=== PATIENT | female | born 1985 | race Caucasian/White ===

== ENCOUNTER 2021-11-15 16:31 | Outpatient (CLI) | payer OTHER, SELFPAY ==
--- NOTE | 2021-11-15 14:40 | EMB_PTH ---
PATIENT: NISHANT PERKINS LOC: [facility] U#:[id number] AGE/SX: 36/F ROOM: RE11/15/[address]: Dr. Hansel Knutson MD : 1985 BED: DIS: 11/15/2021 SPEC #: [id number] RECD: 11/15/21 17:02 STATUS: KARL MASOUD #: [id number] ABDI: 11/15/21 14:[address]: Hansel Knutson DEPT: SURGICAL PATHOLOGY RECD BY: Ashely Griffith ENTERED: 11/16/21 11:52 SP TYPE: ENDOM BX/C ANAND DR: Dr. Jim Gary MD Tissues: Endometrium, NOS Procedures: Surgery Specimen Level IV HEADER OPERATION: Endometrial biopsy PRE-OP DIAGNOSIS: N92.0 TISSUE SUBMITTED: Endometrial biopsy MICROSCOPIC DIAGNOSIS Endometrial biopsy: Secretory endometrium. SJ:elsy 11/17/2021 MICROSCOPIC DESCRIPTION Slides are reviewed. GROSS DESCRIPTION Received in fixative is one container labeled with the patient's name and designated endometrial biopsy. The specimen consists of multiple irregular and elongated fragments of light to dark walker soft tissue that in aggregate measure 2 x 2 x 0.2 cm. The specimen is totally submitted in one cassette. / AM:elsy 11/16/2021 TC:4 CPT: 83470
[2021-11-21 13:42] LABS: HPV Reflexed? NOT INDICATED
== END 2021-11-15 23:59 | disposition home or self-care (01) ==
LOC: LABSPEC 16:33
PROVIDERS: PCP Family Medicine; Visit Provider Obstetrics & Gynecology
DX: N92.0 Excessive and frequent menstruation with regular cycle (principal); Z12.4 Encounter for screening for malignant neoplasm of cervix
CPT/HCPCS: 88175; 88305; G0145

== ENCOUNTER 2022-01-16 06:44 | Day surgery (SDC) | payer SELFPAY, OTHER ==
[2022-01-05 13:21] LABS: Hematocrit 38.2 % (37-47); Hemoglobin 12.6 g/dL (12.0-15.0); Mean Corpuscular Hgb 27.8 pg (27.0-32.0); Mean Corpuscular Volume 84.3 fL (81-99); Mean Platelet Vol. 10.2 fl (6.2-12.0); Platelet Count 385 K/mm3 (150-450); RBC Distribution Width CV 12.9 % (11.6-14.6); RBC Distribution Width SD 39.4 fl (35.1-43.9); Red Blood Count 4.53 M/mm3 (4.2-5.4); White Blood Count 9.9 K/mm3 (4.4-11.0)
[2022-01-05 13:33] LABS: International Normalized Ratio 1.1; Partial Thromboplast Time 30.5 Seconds (24.1-36.2); Prothrombin Time (Protime)PT. 13.2 SECONDS (11.7-14.9)
--- NOTE | 2022-01-15 12:25 | HP.PCM_ITS ---
History and Physical Date of Admission: 01/16/22 Surgical History and Physical Janny Ma, a 36 year old female 4 0 0 0 4, presents for Dx H/S, D and C, HTA on January 16, 2022 at . -- Menorrhagia -- Heavy menses, Painful menses which began 08/2018. Janny claims it started after csection in 08/2018 It is located in the uterus. Severity is moderate to severe; It is aggravated by menses. It is relieved by none. Prior tubal. MEDICATIONS HISTORY: None ALLERGIES: Sulfa (Sulfonamide Antibiotics), Hives and/or rash, Betadine, Hives and/or rash, Bactrim and Hives and/or rash Infections - Chicken pox Illnesses - no serious past illnesses Accidents - None Hospitalizations - see surgery Review of Systems: GENERAL - Denies fever, or chills SKIN - Denies skin changes EYES - Denies visual changes EARS - Denies difficulty hearing NOSE - Denies nasal congestion or bleeding MOUTH - Denies sore throat or difficulty swallowing NECK - Denies pain or swelling RESPIRATORY - Denies shortness of breath or wheezing CARDIOVASCULAR - Denies palpitations or chest pain GASTROINTESTINAL - Denies nausea, vomiting, diarrhea, constipation GENITOURINARY - Denies dysuria, frequency of urination, incontinence of urine MUSCULOSKELETAL - Denies joint or muscle pain NEUROLOGICAL - Denies localized numbness or weakness PSYCHIATRIC - Denies depression or anxiety ENDOCRINE - Denies heat or cold intolerance, weight loss or gain HEMATO-IMMUNOLOGIC - Denies excesive bleeding with cuts SOCIAL HISTORY: Alcohol Use - None Smoking - Never Diet - no special diet Lifestyle - moderate stress lifestyle and Exercise - active work Seat Belt Use - most of the time Employer - [employer] Illicit Drug Use - None Sexual Activity - Spouse-Sig Other Name - Jeff Spouse-Sig Other Occupation - Self-Employed Children Name(s) - Ana Luisa(11), Rom(13), Konstantin(16), Larry(18) Control - Prior Tubal FAMILY HISTORY: MENSTRUAL HISTORY: LMP Known?- C-SectionAmount/Duration - 5 days, Regularity - Regular, Frequency - monthly days, LMP - 12/23/21, Age Onset Menarche - 14 PAST PREGNANCIES: Total Pregnancies - 4; Full Term Pregnancies - 4; Premature - 0; Abortions, Induced - 0; Abortions, Spontaneous - 0; Ectopics - 0; Multiple Births - 0; Living Children - 4 SURGICAL HISTORY: 1. 08/28/2018 and Tubal ; Hansel Knutson M.D. 2. 09/27/2016 ; Dr. Rubio PHYSICAL EXAM BP- 120/82 Sitting, Left arm, regular cuff Temp- 98.3 Taken Orally Weight- 227.93763 lbs Height- 68 inch BMI:34.6 CONSTITUTIONAL - NAD, well nourished, and well developed SKIN - No rash, lesions, or ulcers HEENT - Normocephalic, PERRLA, EOMI NECK - No nodes, no nuchal rigidity and thyroid normal size and texture LYMPH NODES - Palpation of lymph nodes in neck and groins within normal limits LUNGS - CTA x2 without wheezes, crackles or rales CARDIAC - Regular rate and rhythm without rubs, murmurs, or gallops ABDOMEN - Without hepatosplenomegaly, distention, masses, rebound, or guarding; normal bowel sounds; no hernias EXTREMITIES - No edema or calf tenderness NEUROLOGICAL - Cranial nerves II-XII grossly intact PSYCHIATRIC - A and O to time, place, person, mood and affect External Genitial Vagina - non-tender without lesions Urethra/Urethral Meatus - non-tender Bladder - non-tender Vagina - vaginal chávez are pink and moist without loss of rugae and no evidence of atropy Cervix - without cervical motion tenderness and has normal size and features without evident lesions Uterus - enlarged uterus 8 wks, wt 125-150 g Adnexa - clear without massess or tenderness ASSESSMENT/PLAN: 1. Premenopausal Menorrhagia EMBx OK and U/S shows no fibroids. Discussed options and pt wants to proceed with Dx H/S and D and C and HTA. Discussed RBAs and all questions answered.
[2022-01-16] VITALS (7 sets, daily range): BP systolic 115–134; BP diastolic 76–90; PULSE 49–79; RESP 16–18; TEMP 36.1–37.2; O2SAT 94–99; BMI 38.1
[2022-01-16] MEDS: Lactated Ringers 1,000 ML 15 ML IV (07:45)
--- NOTE | 2022-01-16 08:20 | EMB_PTH ---
PATIENT: NISHANT PERKINS [place] [facility] [place] U[place][id number] AGE/SX: 36/F ROOM: RE01/16/[address]: Dr. Hansel Knutson MD : 1985 BED: DIS: 01/16/2022 SPEC #: [id number] RECD: 01/16/22 10:47 STATUS: KARL MASOUD #: [id number] ABDI: 01/16/22 08:[address]: Hansel Knutson DEPT: SURGICAL PATHOLOGY RECD BY: Luana Rodriguez ENTERED: 01/16/22 11:38 SP TYPE: ENDOM BX/C ANAND DR: Katie Valle, SARIKA Tissues: Endometrium, NOS Procedures: Surgery Specimen Level IV HEADER OPERATION: Hysteroscopy, dilation and curettage, hydrothermal ablation PRE-OP DIAGNOSIS: Menorrhagia TISSUE SUBMITTED: Endometrial curettings MICROSCOPIC DIAGNOSIS Endometrium, biopsy: Secretory endometrium. AM:elsy 01/17/2022 COMMENT Reference is made to the patient's previous endometrial biopsy from 11/17/2021 ([id number]) in which secretory endometrium was identified. Case has been reviewed in consultation with Dr. Olvera who concurs with the above diagnosis. IDC:[email or web address] MICROSCOPIC DESCRIPTION Slides are reviewed. GROSS DESCRIPTION Received in fixative is one container labeled with the patient's name and designated endometrial curettings. The specimen consists of multiple irregular fragments of walker-pink soft tissue mixed with polypoid tissue that in aggregate measure 7.5 x 3 x 0.6 cm. The entire specimen is submitted in six cassettes. / CYNTHIA:elsy 01/16/2022 TC:5 CPT: 89435
[2022-01-16] MEDS: Cefotetan 2 GM in 0.9% NS 100 ML IV (08:28)
--- NOTE | 2022-01-16 09:14 | OP.PCM_ITS ---
Report of Operation Date of Procedure: 01/16/22 Pre-Operative Diagnosis: Menorrhagia Post-Operative Diagnosis: Menorrhagia Surgery/Procedure Performed:: Diagnostic Hysteroscopy, Dilation and Curettage, Hydrothermal Ablation Description of Surgical Findings:: 10 cm endometrial cavity with no fibroids visualized. George endometrium. Surgeon: Hansel Knutson Type of Anesthesia: General (LMA) Anesthesiologist: Herman Thornton Specimen's removed: Endometrial curettings Estimated Blood Loss (mL): Minimal Fluids Replaced: Crystalloid Description of Procedure: Surgeon: Hansel Knutson MD, FACOG Indication: This is a 36year old patient who has been having problems with extremely heavy menses. Conservative measures have not been helpful. Endometrial sampling was benign and pelvic ultrasound showed that ablation may be helpful. Pt has been counseled regarding the risks, benefits and alternatives of this procedure and all questions answered. She understands that only about half of patients will have amenorrhea after this procedure. Procedure: Patient taken to the operating room where after induction of general anesthesia the patient was prepped and draped in the usual sterile fashion. Bladder was drained of urine with a catheter. Anterior cervix grasped and cervix was dilated to about 17 Hungarian size. Hysteroscopic hydrothermal ablation (HTA) unit was place in the cervix and the above findings were noted. HTA unit was removed and the uterus was gently curretted removing all contents. An HTA ablation cycle was then carried out at about 90 degrees Centigrade for 10 minutes with virtually no fluid loss during the procedure. After an appropriate cool down the HTA unit was removed with minimal bleeding noted. The patient tolerated the procedure well and was taken to the recovery room in satisfactory condition. Sponge, instruments and needle counts were all correct. There were no apparent complications of the surgery. Cefotetan 2 gms IV was given prior to the procedure. Estimated Blood Loss: Minimal Specimen to Pathology: Endometrial Curettings Grafts/Implants Used: None Complications None Admit VTE Documentation VTE Present on Admission: Yes VTE Mechan Device Prophylaxis: SCD's
--- NOTE | 2022-01-16 09:18 | DCINST_ITS ---
Discharge Instructions Diet Discharge Diet: No restrictions Activity Discharge Activity: Return to Normal Activity, May Shower and May Take a Tub Bath May resume sexual activity in: 3 weeks Additional Activity Instructions:: Nothing in the vagina for 3-4 weeks please. Use Ibuprophen 800 mg orally every 8 hours as needed for pain. Can also add Tylenol 1000 mg every 8 hours if needed for pain. If Ibuprophen and Tylenol are not effective then use the Oxycodone but keep in mind it can cause serious constipation issues. Drink lots of water. Call if bleeding more than a pad per hour. Clear to brownish discharge will last for about 3 weeks. Dressing / Incision Call your doctor if you observe: Fever of 101 or Higher, Inability to urinate, Inability to have a bowel movement and Using more than 1 pad per hour Follow Up Care Please Follow Up With: Hansel Knutson MD When: 3 to 4 weeks Test Results: Test results from this visit will be discussed in further detail at your follow-up appointment, if applicable. Discharge Plan Admission Primary Reason for Your Visit: Hysteroscopy, D&C, Hydrothermal Ablation Attending Provider: Hansel Knutson Primary Care Provider: Katie Valle NP Discharge Orders/Prescriptions Prescriptions: New oxycodone 5 mg capsule 5 mg PO Q6H PRN (Reason: pain (scale score 7-10)) 7 Days Qty: 5 RF: 0 Continued cholecalciferol (vitamin D3) [Vitamin D3] 25 mcg (1,000 unit) Tablet 25 mcg PO DAILY RF: 0 Referrals / Follow Up: Katie Valle NP, [employer] [Primary Care Provider] - Disposition Disposition (needs filled in before D/C Order can be placed): Home, Self Care
[2022-01-16] MEDS: Acetaminophen 500 MG Tablet 1000 MG PO (10:24)
[2022-01-16] MEDS: Ibuprofen 400 MG Tablet 800 MG PO (10:56)
[2022-01-16] MEDS: Lactated Ringers 1,000 ML 50 ML IV (11:02)
== END 2022-01-16 23:59 | disposition home or self-care (01) ==
LOC: SDC 06:49 → AC 06:52
PROVIDERS: PCP Nurse Practitioner Family; Referring Provider Obstetrics & Gynecology; Visit Provider Obstetrics & Gynecology
PROC: 0UDB8ZZ Extraction of Endometrium, Via Natural or Artificial Opening Endoscopic (ICD-10-PCS; CPT 58558; principal; 2022-01-16 08:10)
DX: N92.4 Excessive bleeding in the premenopausal period (principal)
CPT/HCPCS: 58563; 36415; 85027; 85610; 85730; 86850; 86900; 86901; 87426; 88305; J7120; J2405